=== PATIENT | female | born 1965 | race Caucasian/White ===

== ENCOUNTER → 2019-07-26 | Outpatient (CLI) | payer BC, OTHER ==
[~2019-07-26] MED LIST: GADOBUTROL 10 MMOL/10 ML (GADAVIST) VIAL IV ONE; estrogen
--- NOTE | 2019-07-26 11:53 | Diagnostic Imaging Report ---
EXAM: MRI THORACIC SPINE W/WO CON INDICATION: Thoracic back pain. COMPARISON: None. FINDINGS: Normal alignment. Vertebral body heights are preserved. Schmorl's nodes in a couple of upper thoracic vertebral bodies. Bone marrow signal is otherwise unremarkable. [id number] scattered degenerative endplate changes. No high-grade spinal canal or neural foraminal narrowing. No abnormal signal in the thoracic spinal cord. The visualized paravertebral soft tissues are unremarkable. IMPRESSION: Age-appropriate spondylotic changes in the thoracic spine. No acute findings. No neural impingement. No abnormal signal in the thoracic spinal cord. Dictated by: Dictated on workstation # [id number]
== END ==
LOC: RAD 09:05
PROVIDERS: ATTEND Nurse Practitioner
DX: M47.894 Other spondylosis, thoracic region (principal)
CPT/HCPCS: 72157

== ENCOUNTER → 2021-05-07 | Outpatient (CLI) | payer OTHER ==
[~2021-05-07] MED LIST changes: -GADOBUTROL 10 MMOL/10 ML (GADAVIST) VIAL IV ONE
--- NOTE | 2021-05-07 12:30 | Diagnostic Imaging Report ---
INDICATION: Routine screening. COMPARISON: 12/05/2010 and 08/17/2009. TECHNIQUE: 2D and 3D bilateral screening mammography was performed with CAD. FINDINGS: Both breasts are heterogeneously dense, limiting the sensitivity of mammography. No mass is identified. There are some calcifications in the superior right breast seen on the MLO view. There is a cluster in the central right breast on the CC view. I am uncertain if these represent the same calcifications. There are some calcifications laterally on the CC view as well. Additional views are recommended. The left breast is unremarkable. The axillae are unremarkable. IMPRESSION: Right breast calcifications. Additional views are recommended for further evaluation. ACR BI-RADS Category 0: Incomplete. (Needs additional imaging evaluation). Result letter will be mailed to the patient. Note: At least 10% of breast cancer is not imaged by mammography. Dictated by: Dictated on workstation # [id number]
== END ==
LOC: RAD 09:20
PROVIDERS: ATTEND Family Medicine
DX: Z12.31 Encounter for screening mammogram for malignant neoplasm of breast (principal); Z76.0 Encounter for issue of repeat prescription; I10 Essential (primary) hypertension; E03.9 Hypothyroidism, unspecified; M25.562 Pain in left knee; E78.00 Pure hypercholesterolemia, unspecified; E78.1 Pure hyperglyceridemia; S23.3XXA Sprain of ligaments of thoracic spine, initial encounter; M54.16 Radiculopathy, lumbar region; R92.1 Mammographic calcification found on diagnostic imaging of breast; R07.89 Other chest pain; F17.299 Nicotine dependence, other tobacco product, with unspecified nicotine-induced disorders; Z71.6 Tobacco abuse counseling
CPT/HCPCS: 77063; 77067

== ENCOUNTER → 2021-05-13 | Outpatient (CLI) | payer OTHER ==
--- NOTE | 2021-05-13 13:30 | Diagnostic Imaging Report ---
INDICATION: Right breast calcifications. The patient presented for additional views. Comparison is made with screening study from 05/07/2021 and prior mammogram from 2009 and 2010. Unilateral right 2-D and 3-D diagnostic mammography was performed. There are 2 clusters of calcifications within the right breast. A cluster in the upper central right breast is noted. There is also a more loosely clustered set of calcifications in the outer and upper right breast slightly more posterior. No mass is detected. Both of these are considered indeterminate. IMPRESSION: There are 2 separate clusters of microcalcifications in the right breast, as described. Tissue sampling of the more tightly clustered calcifications at approximately 12:00 location mid depth is recommended. These would be amenable to stereotactic biopsy. Either interval followup or perhaps stereotactic biopsy of the 2nd cluster is more posterior in the upper outer right breast could be performed on a later date. BI-RADS Category 4 ACR BI-RADS Category 4: Suspicious abnormality. Result letter will be mailed to the patient. Note: At least 10% of breast cancer is not imaged by mammography. Dictated by: Dictated on workstation # [id number]
== END ==
LOC: RAD 09:15
PROVIDERS: ATTEND Nurse Practitioner Family
DX: R92.0 Mammographic microcalcification found on diagnostic imaging of breast (principal)
CPT/HCPCS: 77065; G0279

== ENCOUNTER → 2021-06-26 | Outpatient (CLI) | payer OTHER ==
[~2021-06-26] VITALS: Ht 167 cm; Wt 77.0 kg
[~2021-06-26] MED LIST changes: +LIDOCAINE 1% INJ 20 ML 20 ML VIAL INJ ONE
--- NOTE | 2021-06-26 13:21 | Diagnostic Imaging Report ---
EXAMINATION: Stereotactic biopsy of the right breast. INDICATION: Abnormal calcifications. FINDINGS: The diagnostic mammogram performed on 05/13/2021 noted two clusters of calcifications in the superior aspect of the breast. Following aseptic preparation of the skin and administration of local anesthesia, a stereotactic biopsy of the more tightly clustered calcifications in the 12 o'clock position was performed. Multiple passes were obtained. The post biopsy images of the sample obtained show that the calcifications in question are included. Subsequently, a clip was inserted into the biopsy site. On the CC view, the clip seems to be in close proximity to the biopsy defect; however, on the true lateral view, the clip appears to lie approximately 2 cm along the inferior aspect of the biopsy site. IMPRESSION: There has been a successful stereotactic biopsy of the right breast. A final Pathology report is pending. Dictated by: Dictated on workstation # [id number]
== END ==
LOC: RAD 10:01
PROVIDERS: ATTEND Nurse Practitioner Family
DX: N63.11 Unspecified lump in the right breast, upper outer quadrant (principal); I10 Essential (primary) hypertension; E78.1 Pure hyperglyceridemia
CPT/HCPCS: 19081; 88305; A4648